=== PATIENT | female | born 1950 ===

== ENCOUNTER 2023-01-13 08:55 | Outpatient (CLI) | payer OTHER | END 2023-01-13 09:12 | disposition home or self-care (01) | LOC: RAD 08:55 | PROVIDERS: ATTEND Orthopaedic Surgery | DX: M25.561 Pain in right knee (principal); M25.562 Pain in left knee; M79.661 Pain in right lower leg ==

== ENCOUNTER 2023-02-23 09:25 | Outpatient (CLI) | payer OTHER | END 2023-02-23 09:36 | disposition home or self-care (01) | LOC: MRI 09:25 | PROVIDERS: ATTEND Orthopaedic Surgery | DX: S83.200A Bucket-handle tear of unspecified meniscus, current injury, right knee, initial encounter (principal) | CPT/HCPCS: 73721 ==